=== PATIENT | female | born 1960 | race Caucasian/White ===

== ENCOUNTER → 2016-10-22 | Outpatient (CLI) | payer MEDICARE, OTHER ==
--- NOTE | 2016-10-22 10:00 | XR ---
EXAMINATION TYPE: XR chest 2V DATE OF EXAM: 10/22/2016 COMPARISON: 01/26/2013 TECHNIQUE: PA and lateral views submitted. HISTORY: Shortness of breath FINDINGS: The lungs are clear and there is no pneumothorax, pleural effusion, or focal pneumonia. Hyperinflat ion compatible COPD. Biapical pleural thickening. Arthropathy of the shoulders. Hypertrophic and dege nerative change of the spine. IMPRESSION: 1. Diffuse COPD..
== END | disposition home or self-care (01) ==
LOC: RADXRMAIN 09:38
PROVIDERS: ATTEND Family Medicine
DX: J44.9 Chronic obstructive pulmonary disease, unspecified (principal); Z72.0 Tobacco use
CPT/HCPCS: 71020

== ENCOUNTER → 2016-12-03 | Outpatient (CLI) | payer MEDICARE, OTHER ==
--- NOTE | 2016-12-03 09:36 | BD ---
EXAMINATION TYPE: MG DEXA axial skeleton. DATE OF EXAM: 12/03/2016 COMPARISON: NONE CLINICAL HISTORY: 56-year-old female osteopenia Height: 64.5 Weight: 88.6 FRAX RISK QUESTIONS: Alcohol (3 or more units per day): yes Family History (Parent hip fracture): no Glucocorticoids (More than 3mos): no (Ex: prednisone, prednisolone, methylprednisolone, dexamethasone, and hydrocortisone). History of Fracture in Adulthood: no Secondary Osteoporosis: 1. Type 1 Diabetes: no 2. Hyperthyroidism: no 3. Menopause before 45: no 4. Malnutrition: no 5. Chronic liver disease: no Rheumatoid Arthritis: yes Current Tobacco Use: yes RISK FACTORS HISTORY OF: Hip Fracture (Right/Left): NO Spine Fracture: NO History of Wrist Fracture: NO Surgery to Spine/Hip(right/left)/Wrist (right/left): yes When: L-SPINE X2- Family History of Osteoporosis: no Active: yes Diet low in dairy products/other sources of calcium: no Postmenopausal woman: hysterectomy age 44 Lost more than 2 inches in height since high school: no Frequent falls: no Poor Health: no Hyperparathyroidism: no Adrenal Insufficiency: no MEDICATIONS: heart meds/ aspirin EXAM MEASUREMENTS: Bone mineral densitometry was performed using the [employer] System. Bone mineral density as measured about the Lumbar spine is: Bone mineral density about the R hip (g/cm2): 0.870 Bone mineral density about the L hip (g/cm2): T Score values are as follows: -----R Neck: -1.2 -----L Neck: -1.2 -----R Total: -1.5 -----L Total: -1.4 Bone mineral density baseline here IMPRESSION: Osteopenia (T Score between -2.5 and -1 as noted by T score values There is slightly increased risk of fracture and the patient may be considered for treatment. Re-Scre en 2-5 years. NOTE: T-SCORE=SD OF THE YOUNG ADULT MEAN.
== END | disposition home or self-care (01) ==
LOC: RADBDWWP 08:22
PROVIDERS: ATTEND Family Medicine
DX: M85.80 Other specified disorders of bone density and structure, unspecified site (principal)
CPT/HCPCS: 77080